=== PATIENT | female | born 1955 | race Caucasian/White ===

== ENCOUNTER 2018-01-23 15:07 | Inpatient (IN) | payer OTHER ==
[~2018-01-23] VITALS: Ht 157.5 cm; Wt 79.0 kg
[2018-01-23 15:24] LABS: BASOPHIL (%) 0.4 % (0-1); EOSINOPHIL (%) 2.5 % (0-5); EOSINOPHIL COUNT 0.2 K/uL (0-0.3); HEMATOCRIT 42.9 % (36.0-46.0); HEMOGLOBIN 14.9 G/DL (11.9-15.5); IMMATURE GRANULOCYTE (%) 0.1 % (0.0-0.7); LYMPHOCYTE (%) 21.9 % (15-42); LYMPHOCYTE COUNT 1.5 K/uL (1.0-2.8); MCH 31.3 PG (29.0-34.0); MCHC 34.7 G/DL (30.0-36.0); MCV 90.1 FL (83-99); MONOCYTE (%) 11.1 % (3-12); MONOCYTE COUNT 0.8 K/uL (0-0.8); NEUTROPHIL COUNT 4.4 K/uL (1.8-6.4); PLATELET COUNT 310 K/uL (156-360); RBC DIS.WIDTH-CV 12.1 % (11.8-14.6); RBC DIS.WIDTH-SD 40.4 % (39-53); RED BLOOD COUNT 4.76 M/uL (3.80-5.20); WHITE BLOOD COUNT 6.9 K/uL (4.1-10.2)
[2018-01-23 15:34] LABS: PTT 30.5 SEC (25-37)
[2018-01-23 15:55] LABS: TROP-I INTERPRETATION NEGATIVE; TROPONIN-I < 0.01 ng/mL (0.0-0.30)
[2018-01-23 15:56] LABS: AMYLASE 43 IU/L (1-118); CHLORIDE 106 MEQ/L (99-109); CREATININE 0.9 MG/DL (0.6-1.3); GFR ESTIMATE (CALCULATED) > 59 mL/min/; GLUCOSE 108 mg/dL (70-99); LIPASE 32 U/L (1.0-51.0); POTASSIUM 3.6 MEQ/L (3.7-5.4); SERUM ETHYL ALCOHOL < 10 mg/dL; SODIUM 139 MEQ/L (136-147); UREA NITROGEN (BUN) 12 mg/dL (9-23)
[2018-01-23] MEDS ORDERED: SYNTHROID112 MCG PO (16:08)
[2018-01-23] MEDS ORDERED: COZAAR100 MG PO (16:08)
[2018-01-23] MEDS ORDERED: WELLBUTRIN XL300 MG PO (16:08)
[2018-01-23] MEDS ORDERED: CALCIUM 600 +1 EAC1 PO (16:09)
[2018-01-23] MEDS ORDERED: NORCO 5/3251 TABLET PO (16:09)
[2018-01-23] MEDS ORDERED: CYANOCOBALAM1000 MCG PO (16:09)
[2018-01-23 16:39] LABS: APPEARANCE CLEAR ((CLEAR)); BILIRUBIN NEGATIVE; BLOOD NEGATIVE; COLOR YELLOW ((YELLOW)); GLUCOSE (STRIP) NEGATIVE; KETONES NEGATIVE; LEUKOCYTES SMALL; NITRITE NEGATIVE; PROTEIN (STRIP) NEGATIVE; SPECIFIC GRAVITY 1.008 (1.000-1.030); UROBILINOGEN 0.2 MG/DL (0.2-1.0)
[2018-01-23 16:47] LABS: AMPHETAMINE NEGATIVE (500 ng/mL); BARBITURATES NEGATIVE (200 ng/mL); BENZODIAZEPINES PRESUMPTIVE POSITIVE (150 ng/mL); BUPRENORPHINE NEGATIVE (10 ng/mL); COCAINE NEGATIVE (150 ng/mL); METHADONE NEGATIVE (200 ng/mL); METHAMPHETAMINE NEGATIVE (500 ng/mL); OPIATES (MORPHINE) PRESUMPTIVE POSITIVE (100 ng/mL); OXYCODONE NEGATIVE (100 ng/mL); PHENCYCLIDINE NEGATIVE (25 ng/mL); PROPOXYPHENE NEGATIVE (300 ng/mL); THC CANNABINOIDS NEGATIVE (50 ng/mL); TRICYCLIC ANTIDEPRESSANTS NEGATIVE (300 ng/mL)
[2018-01-23 16:50] LABS: BACTERIA RARE /HPF; EPITHELIAL CELLS RARE /HPF; MUCUS TRACE /LPF; UCUL ADDED? YES; WHITE BLOOD CELLS 20-30 /HPF (0-5)
[2018-01-23 17:17] LABS: BENZODIAZEPINES, URINE SCREEN POSITIVE (200 ng/mL)
[2018-01-23 19:00] VITALS: BP 159/11
[2018-01-23 20:01] VITALS: BP 167/101
[2018-01-23 21:00] VITALS: BP 151/101
[2018-01-23 22:00] VITALS: BP 129/82
[2018-01-23 23:00] VITALS: BP 108/68
[2018-01-23 23:55] VITALS: BP 123/76
[2018-01-24] VITALS (18 sets, daily range): BP systolic 108–167; BP diastolic 62–111
[2018-01-24 05:31] LABS: HEMATOCRIT 40.2 % (36.0-46.0); HEMOGLOBIN 13.5 G/DL (11.9-15.5); MCH 30.8 PG (29.0-34.0); MCHC 33.6 G/DL (30.0-36.0); MCV 91.8 FL (83-99); PLATELET COUNT 310 K/uL (156-360); RBC DIS.WIDTH-CV 12.2 % (11.8-14.6); RBC DIS.WIDTH-SD 41.2 % (39-53); RED BLOOD COUNT 4.38 M/uL (3.80-5.20); WHITE BLOOD COUNT 7.1 K/uL (4.1-10.2)
[2018-01-24 06:02] LABS: CHLORIDE 106 MEQ/L (99-109); CREATININE 0.8 MG/DL (0.6-1.3); GFR ESTIMATE (CALCULATED) > 59 mL/min/; GLUCOSE 88 mg/dL (70-99); POTASSIUM 3.9 MEQ/L (3.7-5.4); SODIUM 140 MEQ/L (136-147); UREA NITROGEN (BUN) 10 mg/dL (9-23)
[2018-01-25] VITALS (14 sets, daily range): BP systolic 120–169; BP diastolic 82–115
[2018-01-25 06:01] LABS: CHLORIDE 105 MEQ/L (99-109); CREATININE 0.9 MG/DL (0.6-1.3); GFR ESTIMATE (CALCULATED) > 59 mL/min/; GLUCOSE 88 mg/dL (70-99); SODIUM 139 MEQ/L (136-147); UREA NITROGEN (BUN) 13 mg/dL (9-23)
[2018-01-25 06:08] LABS: BASOPHIL (%) 0.3 % (0-1); EOSINOPHIL (%) 1.6 % (0-5); EOSINOPHIL COUNT 0.1 K/uL (0-0.3); HEMATOCRIT 39.8 % (36.0-46.0); HEMOGLOBIN 13.6 G/DL (11.9-15.5); IMMATURE GRANULOCYTE (%) 0.1 % (0.0-0.7); LYMPHOCYTE (%) 28.5 % (15-42); MCH 31.3 PG (29.0-34.0); MCHC 34.2 G/DL (30.0-36.0); MCV 91.5 FL (83-99); MONOCYTE (%) 12.7 % (3-12); MONOCYTE COUNT 0.9 K/uL (0-0.8); NEUTROPHIL (%) 56.8 % (45-76); NEUTROPHIL COUNT 3.9 K/uL (1.8-6.4); PLATELET COUNT 308 K/uL (156-360); RBC DIS.WIDTH-CV 12.1 % (11.8-14.6); RED BLOOD COUNT 4.35 M/uL (3.80-5.20); WHITE BLOOD COUNT 6.8 K/uL (4.1-10.2)
[2018-01-26 03:44] VITALS: BP 133/71
[2018-01-26 06:35] VITALS: BP 144/97
[2018-01-26 10:05] LABS: HDL CHOLESTEROL 48 MG/DL (Desirable>=50); LDL CHOLESTEROL 126 mg/dL (Desirable<100); NON-HDL CHOLESTEROL 150 mg/dL (Desirable<160); TOTAL CHOLESTEROL 198 mg/dL (Desirable<200); TRIGLYCERIDES 118 MG/DL (Normal: <150)
[2018-01-26 10:17] LABS: THYROTROPIN (TSH) 0.69 MIU/L (0.4-5.5)
[2018-01-26 11:49] VITALS: BP 131/82
[2018-01-26 15:30] VITALS: BP 129/81
[2018-01-26 19:36] VITALS: BP 116/71
[2018-01-26 22:27] VITALS: BP 124/82
[2018-01-27 07:45] VITALS: BP 140/92; BP 145/68
[2018-01-27] MEDS ORDERED: AMLODIPINE BESYL5 MG PO (11:02)
[2018-01-27] MEDS ORDERED: ATORVASTATIN CA40 MG PO (11:08)
== END 2018-01-27 12:04 | DRG 64 ==
LOC: EME 15:07 → EDOF 16:04 → 4WEST 16:04 → ENRESERV 16:09 → 4WEST 17:21 → ENRESERV 01-25 13:45 → 5SOUTH 01-25 15:34
PROVIDERS: Emergency Medicine; Hospitalist; Obstetrics & Gynecology; Surgery
DX: I61.0 Nontraumatic intracerebral hemorrhage in hemisphere, subcortical (principal); G93.6 Cerebral edema; I69.351 Hemiplegia and hemiparesis following cerebral infarction affecting right dominant side; F33.9 Major depressive disorder, recurrent, unspecified; E03.9 Hypothyroidism, unspecified; I10 Essential (primary) hypertension; R47.81 Slurred speech
CPT/HCPCS: 70450; 80048; 80061; 81003; 82150; 82948; 83036; 83690; 84443; 84484; 84999; 85025; 85027; 85610; 85730; 86850; 86900; 86901; 87086; 87641; 92523 GN; 92610 GN; 93005; 97530 GO; 97530 GP; 99281; 99285; G0480; J7030; J7050

== ENCOUNTER 2018-01-25 13:07 | Inpatient (IN) | payer OTHER ==
[~2018-01-25] VITALS: Ht 157.5 cm; Wt 77.6 kg
[~2018-01-25 13:07] MED LIST: CALCIUM 600 +1 EAC1 PO; COZAAR100 MG PO; CYANOCOBALAM1000 MCG PO; NORCO 5/3251 TABLET PO; SYNTHROID112 MCG PO; WELLBUTRIN XL300 MG PO
[2018-01-27] MEDS ORDERED: AMLODIPINE BESYL5 MG PO (11:02)
[2018-01-27] MEDS ORDERED: ATORVASTATIN CA40 MG PO (11:08)
[2018-01-27 12:05] VITALS: BP 119/70
[2018-01-27 15:44] VITALS: BP 119/61
[2018-01-27 22:52] VITALS: BP 117/72
[2018-01-28 05:49] VITALS: BP 130/83
[2018-01-28 06:53] LABS: HEMATOCRIT 43.7 % (36.0-46.0); HEMOGLOBIN 14.6 G/DL (11.9-15.5); MCH 30.9 PG (29.0-34.0); MCHC 33.4 G/DL (30.0-36.0); MCV 92.6 FL (83-99); PLATELET COUNT 309 K/uL (156-360); RBC DIS.WIDTH-CV 12.3 % (11.8-14.6); RBC DIS.WIDTH-SD 41.8 % (39-53); RED BLOOD COUNT 4.72 M/uL (3.80-5.20); WHITE BLOOD COUNT 6.8 K/uL (4.1-10.2)
[2018-01-28 07:20] LABS: ALBUMIN 4.2 G/DL (3.2-4.8); ALKALINE PHOSPHATASE 91 IU/L (3-129); ALT (GPT) 24 IU/L (3-49); AST (GOT) 16 IU/L (2-34); CHLORIDE 102 MEQ/L (99-109); GFR ESTIMATE (CALCULATED) > 59 mL/min/; GLUCOSE 120 mg/dL (70-99); POTASSIUM 4.1 MEQ/L (3.7-5.4); SODIUM 137 MEQ/L (136-147); TOTAL BILIRUBIN 0.7 MG/DL (0.0-1.0); TOTAL PROTEIN 6.8 G/DL (6.4-8.3)
[2018-01-28 07:22] LABS: UREA NITROGEN (BUN) 21 mg/dL (9-23)
[2018-01-28 15:28] VITALS: BP 122/76
[2018-01-29 05:24] VITALS: BP 119/69
[2018-01-29 15:01] VITALS: BP 129/80
[2018-01-30 05:12] VITALS: BP 118/75
[2018-01-30 15:05] VITALS: BP 123/78
[2018-01-31 04:20] VITALS: BP 131/71
[2018-01-31 15:27] VITALS: BP 126/68
[2018-02-01 05:55] VITALS: BP 121/80
[2018-02-01 15:51] VITALS: BP 118/78
[2018-02-02 15:39] VITALS: BP 132/76
[2018-02-03 05:22] VITALS: BP 119/73
[2018-02-03 15:05] VITALS: BP 104/74
[2018-02-04 05:26] VITALS: BP 109/73
[2018-02-04 15:27] VITALS: BP 105/68
[2018-02-05 05:17] VITALS: BP 126/75
[2018-02-05 15:45] VITALS: BP 110/73
[2018-02-06 05:40] VITALS: BP 113/66
[2018-02-06 15:50] VITALS: BP 114/78
[2018-02-07 05:30] VITALS: BP 113/71
[2018-02-07 15:40] VITALS: BP 117/73
[2018-02-08 05:34] VITALS: BP 108/65
[2018-02-08 05:34] LABS: HEMATOCRIT 38.7 % (36.0-46.0); MCH 30.9 PG (29.0-34.0); MCHC 33.6 G/DL (30.0-36.0); MCV 91.9 FL (83-99); PLATELET COUNT 298 K/uL (156-360); RBC DIS.WIDTH-SD 40.3 % (39-53); RED BLOOD COUNT 4.21 M/uL (3.80-5.20); WHITE BLOOD COUNT 7.1 K/uL (4.1-10.2)
[2018-02-08 05:58] LABS: ALBUMIN 3.9 G/DL (3.2-4.8); ALKALINE PHOSPHATASE 98 IU/L (3-129); ALT (GPT) 21 IU/L (3-49); AST (GOT) 14 IU/L (2-34); CHLORIDE 105 MEQ/L (99-109); CREATININE 0.9 MG/DL (0.6-1.3); GFR ESTIMATE (CALCULATED) > 59 mL/min/; GLUCOSE 90 mg/dL (70-99); POTASSIUM 4.1 MEQ/L (3.7-5.4); SODIUM 141 MEQ/L (136-147); TOTAL BILIRUBIN 0.4 MG/DL (0.0-1.0); TOTAL PROTEIN 6.2 G/DL (6.4-8.3); UREA NITROGEN (BUN) 13 mg/dL (9-23)
[2018-02-08 15:11] VITALS: BP 108/68
[2018-02-08] MEDS ORDERED: ATORVASTATIN CA40 MG PO (22:34)
[2018-02-08] MEDS ORDERED: COZAAR100 MG PO (22:34)
[2018-02-08] MEDS ORDERED: AMLODIPINE BESYL5 MG PO (22:34)
[2018-02-09 05:37] VITALS: BP 123/75
== END 2018-02-09 14:07 | DRG 57 ==
LOC: 3WEST 13:07 → ENPENDDIS 02-10
PROVIDERS: Physical Medicine & Rehabilitation Pain Medicine
PROC: F07M0ZZ Range of Motion and Joint Mobility Treatment of Musculoskeletal System - Whole Body (ICD-10-PCS; principal; 2018-01-27)
DX: I69.251 Hemiplegia and hemiparesis following other nontraumatic intracranial hemorrhage affecting right dominant side (principal); I69.228 Other speech and language deficits following other nontraumatic intracranial hemorrhage; R26.9 Unspecified abnormalities of gait and mobility; I10 Essential (primary) hypertension; E03.9 Hypothyroidism, unspecified; F32.9 Major depressive disorder, single episode, unspecified; Z91.81 History of falling
CPT/HCPCS: 72125; 80053; 85027; 97110 GO; 97530 GP